=== PATIENT | male | born 1960 | race African-American/Black ===

== ENCOUNTER 2017-07-24 23:23 | Inpatient (IN) | payer SELFPAY ==
[2017-07-25] MEDS ORDERED: Ondansetron ODT 4 MG TAB SL PRN (02:12)
[2017-07-25] MEDS ORDERED: Ondansetron HCl/PF 4 MG/2 ML Vial IVP PRN ×2 (02:12→02:28)
[2017-07-25] MEDS ORDERED: Sodium Chloride 0.9% 1,000 ML IV SCH (02:28)
[2017-07-25] MEDS ORDERED: HYDROcodone/Acetaminophen 5/325 mg Tablet PO PRN (02:28)
[2017-07-25] MEDS ORDERED: Acetaminophen 325 MG TAB PO PRN (02:28)
[2017-07-25] MEDS ORDERED: WARFARIN PO PRN (02:43)
[2017-07-25 02:54] VITALS: BMI 39.3
[2017-07-25 03:19] LABS: #Eosinphils 0.1 thou/uL (0.0-0.7); #Lymphocytes 3.7 thou/uL (1.20-3.40); #Monocytes 0.6 thou/uL (0.11-0.59); #Neutrophils 3.7 thou/uL (1.40-6.50); %Eosinophils 1.3 % (0.0-10.0); %Lymphocytes 45.8 % (21.0-51.0); %Monocytes 7.6 % (0.0-10.0); Hematocrit 43.9 % (42.0-52.0); Mean Platelet Volume 7.7 fL (7.4-10.4); Red Blood Cell (RBC) Count 4.66 mill/uL (4.70-6.10); White Blood Cell (WBC) Count 8.1 thou/uL (4.8-10.8)
[2017-07-25 03:25] LABS: Prothrombin Time 13.6 SEC (12.0-14.7)
[2017-07-25 03:39] LABS: Anion Gap 9 mmol/L (10-20); BUN (Urea Nitrogen) 11 mg/dL (8.4-25.7); Calc. Creatinine Clearance 129 mL/min (70-130); Calcium 9.3 mg/dL (7.8-10.44); Carbon Dioxide 27 mmol/L (22-29); Chloride 104 mmol/L (98-107); Estimated GFR-MDRD 90
--- NOTE | 2017-07-25 05:37 | HP ---
CHIEF COMPLAINT: Left arm swelling. HISTORY OF PRESENT ILLNESS: This is a 57-year-old pleasant gentleman who was apparently in his [facility] state of health until about Friday morning when he noticed some swelling in the bicep area of the left arm. He went to work that way and then that day he noticed that the swelling got worse and came onto the forearm. Friday he thought that the swelling got worse. There was slight pain, but no redness, no fever, no chills. because the swelling did not go down he came into e hospital at [facility] for further evaluation and treatment where he had a CT scan of the [facility] which showed a clot in the left subclavian vein and the left brachiocephalic vein. No PE was s een on the CT scan. He was transferred to our hospital for anticoagulation therapy and evaluation o f the clot. The patient denies any fever, chills, diarrhea or dysuria, no bleeding disorders. No h ematuria, no hematochezia, no vomiting of blood, no spontaneous bleeding or prolonged bleeding time noted in the past. The patient's pain is dull in nature about 6/10 in intensity, worsened by activi ty. PAST MEDICAL HISTORY: Significant for hypertension. He used to take lisinopril for that, but he st opped taking it for 1 year back. MEDICATIONS: Right now none. ALLERGIES: None. FAMILY HISTORY: Negative for diabetes and hypertension. SOCIAL HISTORY: Smokes, does not drink or do recreational drugs. 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 REVIEW OF SYSTEMS: Significant for no fever, no chills, no headache, no appetite changes. No cough , no chest pain, diarrhea, dysuria or polyuria. No memory or mood changes. No neck pain, left uppe r extremity as per HPI. PHYSICAL EXAMINATION: VITAL SIGNS: Blood pressure is 136/78, pulse is 68, respirations 18, temperature afebrile. GENERAL: Patient is lying in bed in no apparent distress. HEENT: Atraumatic, normocephalic. Pupils equal, round, react to light. Extraocular movements inta ct. Mucous membranes moist. NECK: No JVD. CHEST: Breath sounds heard. There are no rales or rhonchi. HEART: S1, S2, no murmurs or gallops. ABDOMEN: Soft. EXTREMITIES: No cyanosis, clubbing or edema. Distal pulses present. NEUROLOGIC: Alert, awake, oriented. No cranial nerve deficits. No sensorimotor deficits. Left up per extremity is quite swollen compared to the right upper extremity, so is the forearm. Skin is a little tense, there is no redness. There is no erythema, but it is tender to touch. The patient is neurologically alert, awake, oriented. No cranial deficits. No sensorimotor deficits. LABORATORY DATA: 1. CT scan shows questionable clot near the junction of the left subclavian vein and the left brach iocephalic vein. 2. Intermediate study for pulmonary embolism, but there is no suspicion of clot in largest arteries . 3. Thyroid enlargement with thyroid nodules. 4. Hepatic enlargement, probably secondary to diffuse fatty infiltration. 5. The patient's WBC count is 7.2, hemoglobin is 15. D-dimer is 1.7 and potassium is 4.1, creatini ne is 0.7. ASSESSMENT AND PLAN: 1. Left upper extremity deep venous thrombosis, etiology unknown. No history of trauma or any hist ory of prolonged immobilization. The patient will be treated with Lovenox 1 mg/kg subcu and initiat ion of Coumadin. I will consult the occupational therapy teacher to discuss what would be a potential cause of this clot. 2. Tobacco use. The patient has been counseled. 3. Thyroid nodule. We will do ultrasound of the thyroid. TSH, fatty liver. Patient has been coun seled to lose weight. 4. Hypertension. We will put the patient on metoprolol 12.5 p.o. b.i.d. We will also follow the u ltrasound of the left upper extremities. For now, the patient will be admitted to the medical floor. Monitor the labs and do the need for.
[2017-07-25] MEDS ORDERED: Nicotine 21 MG PATCH TD SCH (06:00)
--- NOTE | 2017-07-25 08:24 | ULT ---
THYROID ULTRASOUND: Date: 07/25/17 HISTORY: Thyroid enlargement. Nodules seen on CT angio study. FINDINGS: Both lobes are enlarged and heterogeneous. There are multiple nodules seen. A dominant nodule in the right mid lobe measures up to 3.0 cm. Another dominant nodule in the inferior right lobe measures u p to 2.3 cm. A dominant nodule in the mid left lobe measures 3.0 x 4.0 cm. IMPRESSION: Multiple nodules seen in both lobes of the thyroid with dominant nodules described above. POS: TRISH
[2017-07-25] MEDS ORDERED: Docusate 100 MG CAP PO SCH (09:00)
[2017-07-25] MEDS ORDERED: Metoprolol Tartrate 25 MG TAB PO SCH (09:00)
[2017-07-25] MEDS ORDERED: Famotidine 20 MG TAB PO SCH (09:00)
[2017-07-25] MEDS ORDERED: Enoxaparin Sodium 120 MG/0.8 ML SYRINGE SC SCH (09:00)
--- NOTE | 2017-07-25 09:06 | ULT ---
PRELIMINARY REPORT/[facility]/EMERGENCY AFTER HOURS PROCEDURE: Addendum created by Radhames Campos MD on 07/25/2017 2:10 AM Central Time ([place] \T\ [place]) Case reviewed with the technologist Taylor Last at time of interpretation. Although adequate color D oppler signal was visualized in the proximal and mid left subclavian vein and pulse Doppler signal w as demonstrated in the distal left subclavian vein, the technologist, with the benefit of real time scanning, reports that she was unable to obtain color Doppler flow in the distal subclavian vein and cannot exclude thrombosis in this area. Initial Report created on 07/25/2017 1:43 AM Central Time ([place] \T\ [place]) EXAM: US Duplex Left Upper Extremity Veins EXAM DATE/TIME: Exam ordered 07/25/2017 12:42 AM CLINICAL HISTORY: 57 years old, male; Pain and signs and symptoms; Edema, localized; Upper extremity, left; Arn, upper ; Patient HX: M57 transferred to ed from [place] for further treatment of lue dvt. Pt's original co mplaint at [place] was for worsening pain and swelling of lue that began 4 days ago. 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 ; Additional info: Question of a clot near the junctio n of the left subclavian. Vein with the left brachiocephalic vein, seen on cta angio 07/24/17. TECHNIQUE: Real-time ultrasound scan of the veins of the left upper extremity with color Doppler flow, spectral waveform analysis and compression. COMPARISON: No relevant prior studies available. FINDINGS: Deep veins: Unremarkable. No DVT in the internal jugular, axillary, or brachial veins. The veins dem onstrate normal color flow, are normally compressible, with normal phasic flow and/or augmentation r esponse. Superficial veins: Unremarkable. No thrombus in the visualized basilic and cephalic veins. Soft tissues: No acute findings. IMPRESSION: Normal left upper extremity duplex venous ultrasound. Thank you for allowing us to participate in the care of your patient. Dictated and Authenticated by: Radhames Campos MD 07/25/2017 1:43 AM Central Time ([place] \T\ [place]) FINAL REPORT VENOUS DUPLEX STUDY OF LEFT UPPER EXTREMITY: Date: 07/25/17 FINDINGS: Flow in the distal subclavian vein is not definitely confirmed on this exam as described on the prel iminary report. The internal jugular vein, axillary vein, basilic vein, and cephalic vein all demonstrate flow and c ompression. Brachial vein shows normal flow and compression. Radial and ulnar veins show flow and co mpression. IMPRESSION: As noted on preliminary report. Color Doppler does show flow in the proximal and mid subclavian vein . The distal subclavian vein is not adequately assessed on this exam. Otherwise, the veins of the le ft upper extremity show normal flow and compression. I am in agreement with the preliminary report. POS: TRISH
--- NOTE | 2017-07-25 09:29 | PDOC.PN ---
- Subjective Encounter Start Date: 07/25/17 Encounter Start Time: 09:27 Mr. Valladares does not have any complaints today. He notes swelling in his left upper extremity. - Objective MAR Reviewed: Yes Vital Signs & Weight: Vital Signs (12 hours) Temp Pulse Resp BP Pulse Ox 07/25/17 07:35 98 F 67 18 115/80 95 07/25/17 04:42 98.3 F 68 18 124/71 95 07/25/17 02:20 97.9 F 69 18 96 07/25/17 01:55 97.9 F 69 18 132/80 96 Weight Weight 251 lb 5.231 oz I&O: 07/24/17 07/25/17 07/26/17 06:59 06:59 06:59 Intake Total 580 Output Total 0 Balance 580 Result Diagrams: 07/25/17 03:00 07/25/17 03:00 Phys Exam - Physical Examination HEENT: PERRLA Respiratory: no wheezing, no rales, no rhonchi, clear to auscultation bilateral Cardiovascular: RRR, no significant murmur Gastrointestinal: soft, non-tender, positive bowel sounds Musculoskeletal: edema present + tense edema of the left upper extremity no warmth or erythema Dx/Plan (1) Deep vein thrombosis (DVT) of left upper extremity Code(s): I82.622 - ACUTE EMBOLISM AND THROMBOSIS OF DEEP VEINS OF L UP EXTREM Status: Acute (2) Hypertension Code(s): I10 - ESSENTIAL (PRIMARY) HYPERTENSION Status: Acute (3) Obesity Code(s): E66.9 - OBESITY, UNSPECIFIED Status: Acute - Plan * DVT- of the left Upper extremity- unknown risk factor. He denies any repetitive upper extremity arm motion, no report of trauma, and there is no mention of a cervical rib or thoracic outlet obstruction on his CT scan * Await recommendations from Hematology * I discussed the risks/benefits- of coumadin vs. the DOAC's and he prefers to take a DOAC, as the indirect cost will actually be lower/ Will change to Eliquis and give him a prescription benefit card. * Hopefully home this afternoon after Hematology evaluation.
--- NOTE | 2017-07-25 11:57 | CON ---
DATE OF CONSULTATION: 07/25/2017 REASON FOR CONSULTATION: Left arm swelling. HISTORY OF PRESENT ILLNESS: Mr. Valladares is a pleasant 57-year-old gentleman who presented to the hospital in [place] yesterday with complaints of 2 days of left arm and shoulder swelling. When he woke from sleep 2 days ago, his left arm was swollen. He did not think much of it and went to work. 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 He denies any injury. There was soreness with palpation in his chest. He decided to present to the emergency room since it did not improve. In the emergency room, a CT angio of the chest was performed. There was some sort of questionable clot near the area of the left subclavian vein in the left brachiocephalic vein. The scan was indeterminate for pulmonary embolism, although the largest arteries were clear. He was admitted for further evaluation and had a Doppler ultrasound of his upper extremity. The area of question at the brachiocephalic vein was negative. It demonstrated good blood flow. There was an issue with the distal left subclavian vein that could not be fully evaluated. The patient was started on anticoagulation with Lovenox. We were asked to give our opinion. The patient denies any history of clotting. No family history of any blood disorders. He was in his usual state of health until 2 days ago. He denies any trauma. No obvious sign of insect bites. PAST MEDICAL HISTORY: Hypertension. PAST SURGICAL HISTORY: None. ALLERGIES: No known drug allergies. HOME MEDICATION: Lisinopril 20 mg daily. FAMILY HISTORY: Positive for colon cancer. Son had leukemia at the age of 32. SOCIAL HISTORY: Single. 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 No alcohol or illicit drug use. REVIEW OF SYSTEMS: Twelve-point review of systems is negative except for noted in HPI. PHYSICAL EXAMINATION: VITAL SIGNS: Temperature is 98.0, pulse is 67, respiratory rate 16, blood pressure 115/80. He is 95% on room air. GENERAL: Well-developed, well-nourished male in no acute distress. HEENT: Normocephalic, atraumatic. Pupils equal and reactive to light. NECK: Supple. CARDIOVASCULAR: Regular rate and rhythm. LUNGS: Clear. ABDOMEN: Soft, nontender. There is no organomegaly. EXTREMITIES: He has swelling and erythema of his left upper extremity. Pulses are intact. HEMATOLOGICAL: There is no petechia or purpura. NEUROLOGICAL: Nonfocal. PSYCHIATRIC: The patient is alert and oriented and appropriate. PERTINENT LABORATORY DATA AND X-RAYS: Current WBCs are 8.1, hemoglobin 14.7, hematocrit 43.5, platelet count is 172,000, 45% neutrophils, and 45% lymphocytes. D-dimer is 1.7, PT is 13.6, INR is 1. Sodium 136, potassium 4.0, chloride 104, CO2 is 27, BUN is 11, creatinine 1.04, calcium is 9.3, total bilirubin is 0.8, AST is 48, ALT is 46, alkaline phosphatase is 82. Troponin is negative. Serum total protein is 8, albumin 3.9, globulin 4.1. TSH is normal. He had a thyroid ultrasound, which showed nodular thyroid. ASSESSMENT: 1. Left arm and shoulder swelling. 2. Indeterminate imaging. DISCUSSION: Case was discussed in detail with Dr. Izaguirre and Dr. Betancur. Review of the imaging has been done. The area of question on the CT angio is negative on the vascular ultrasound; however, we will plan to get a venogram to look at the subclavian vein closely to confirm if there is a clot. He has been started on anticoagulation and we will continue for now until we can determine if there is truly a clot. If the imaging is indeterminate, recommend 3 months of anticoagulation. This may be a provoked incident given his heavy lifting. Thank you for the consult. ARIANA
[2017-07-25 12:27] LABS: PTT 39.5 SEC (22.9-36.1)
--- NOTE | 2017-07-25 14:12 | DIS ---
PRIMARY CARE PHYSICIAN: The patient does not have a primary care physician. DATE OF ADMISSION: 07/25/2017 DATE OF DISCHARGE: 07/25/2017 DISCHARGE DISPOSITION: Home. PRIMARY DISCHARGE DIAGNOSES: 1. Deep vein thrombosis in the left upper extremity. 2. Hypertension. 3. Obesity. 4. Tobacco abuse. DISCHARGE MEDICATIONS: Include Eliquis 10 mg twice a day for 7 days, followed by 5 mg twice a day. He is also to continue Zestril 20 mg daily. PROCEDURES DONE DURING ADMISSION: The patient had a CT angiogram of the chest which was negative fo r pulmonary embolism; however, there was a possible clot at the junction of the left subclavian vein with the left brachiocephalic vein. There was thyroid enlargement with thyroid nodules. The patie nt had a thyroid ultrasound and it showed multiple nodules in both lobes of the thyroid was dominant nodules in the mid left lobe measuring 3 x 4 cm and a dominant nodule in the right mid lobe measuri ng 3 cm. The patient had a venous ultrasound which was inconclusive and a venogram demonstrating th e left subclavian thrombosis. CODE STATUS: Full code. ALLERGIES: No known drug allergies. HOSPITAL COURSE: Mr. Valladares is a pleasant 57-year-old gentleman who presented to the emergency ro om with complaints of left arm swelling. He says that he basically just woke up with the swelling i n his arm and denies having any previous trauma. 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 He was evaluated in the emergency room and found to have a left u pper extremity clot. CT scan did not mention any thoracic outlet obstruction and there was no histo ry of trauma. It is thought that it might be provoked as a result of his job. He is being placed o n Eliquis and was given a prescription discount card for 1 month free supply followed by a copayment card discount. The patient says he should be acquiring health insurance within the next month. He was instructed on the usage and dosage of the medication. He will be following up with Antionette briones in her clinic. He has been instructed to find a primary care physician as soon as possible and al so that he will need to have a repeat thyroid ultrasound in 6-12 months with regards to the multiple thyroid cysts/nodules that were found. The patient was also counseled on smoking cessation as well .
--- NOTE | 2017-07-25 14:41 | SPC ---
LEFT UPPER EXTREMITY VENOGRAM: INDICATIONS: Left upper extremity pain, swelling, and edema. Recent CT angio chest suggested possible thrombosis in the left subclavian vein. Venous Doppler dianna dy from earlier this morning showed equivocal findings in the subclavian vein with questionable loss of flow in the mid subclavian vein. FINDINGS: Iodinated contrast was injected IV into the peripheral left upper extremity. There was opacificatio n of a large basilic system. The cephalic vein and brachial veins were opacified and, while slightl y dilated, were patent. There was occlusion at the subclavian vein on the left, at its junction with the axillary vein. Marco ous collaterals arise from the axillary vein and cephalic vein, indicating that this is probably not an acute occlusion. IMPRESSION: Occlusion of the left subclavian vein, consistent with left subclavian vein thrombosis. Numerous la rge collaterals are present, suggesting that this is subacute or chronic. POS: TRISH
[2017-07-25 16:35] VITALS: BP 146/73; TEMP 97.9
[2017-07-25] MEDS ORDERED: Warfarin Sodium 5 MG TAB PO SCH (17:00)
[2017-07-28 12:32] LABS: Protein C Activity 100 % (78-152)
== END 2017-07-25 16:41 | disposition home or self-care (01) | DRG 301 ==
LOC: ERS 23:23 → T4-B 07-25 00:05
PROVIDERS: ADMIT Internal Medicine; ATTEND Internal Medicine
PROC: B51N1ZZ Fluoroscopy of Left Upper Extremity Veins using Low Osmolar Contrast (ICD-10-PCS; principal; 2017-07-25)
DX: I82.622 Acute embolism and thrombosis of deep veins of left upper extremity (principal); I10 Essential (primary) hypertension; E66.9 Obesity, unspecified; Z68.39 Body mass index [BMI] 39.0-39.9, adult; F17.210 Nicotine dependence, cigarettes, uncomplicated; E04.1 Nontoxic single thyroid nodule
CPT/HCPCS: 36005; 36415; 75820; 76536; 80048; 81240; 83090; 84443; 85025; 85240; 85300; 85303; 85305; 85307; 85379; 85598; 85610; 85730